=== PATIENT | female | born 1985 | race Two or more races ===

== ENCOUNTER 2016-12-09 09:14 | Emergency (ER) | payer MEDICAID ==
[~2016-12-09] VITALS: Ht 167.6 cm; Wt 72.6 kg
[2016-12-09] MEDS ORDERED: IV NS 0.9% 1,000 ML ONE (09:41)
[2016-12-09] MEDS ORDERED: IV SET PRIMARY 1 EA INFUS.SET MC ONE (09:41)
[2016-12-09] MEDS ORDERED: IV NS 0.9% 1,000 ML BAG IV ONE (10:00)
[2016-12-09 10:06] LABS: CALCIUM, SERUM 8.7 mg/dL (8.5-10.1); CREATININE 0.6 mg/dL (0.6-1.3)
[2016-12-09 10:16] LABS: BASOPHILS % (AUTO) 0.4 % (0.0-2.0); DIFF TOTAL % 100 %; EOSINOPHILS # (AUTO) 0.1 /CMM (0.0-0.7); EOSINOPHILS % (AUTO) 0.8 % (0.0-6.0); HEMATOCRIT 39 % (33-45); HEMOGLOBIN 13.1 g/dL (11.5-14.8); LYMPHOCYTES # (AUTO) 1.5 /CMM (0.8-4.8); LYMPHOCYTES % (AUTO) 16.6 % (20.0-44.0); MEAN CORPUSCULAR HEMOGLOBIN 30 PG (26.0-33.0); MEAN CORPUSCULAR HGB CONC 34 g/dl (31.0-36.0); MEAN CORPUSCULAR VOLUME 88 fL (82-100); MONOCYTES # (AUTO) 0.7 /CMM (0.1-1.30); NEUTROPHILS % (AUTO) 75.2 % (43.0-81.0); PLATELET COUNT (AUTO) 164 /CMM (150-450); RED BLOOD CELL COUNT(AUTO) 4.43 MIL/uL (4.0-5.2); WHITE BLOOD COUNT (AUTO) 9.3 K/uL (4.3-11.0)
[2016-12-09] MEDS ORDERED: CT SWABBABLE VALVE TRANS SET 1 EA INFUS.SET MC ONE (10:40)
[2016-12-09] MEDS ORDERED: IV NS 0.9% 250 ML IV ONE (10:40)
[2016-12-09] MEDS ORDERED: IOHEXOL-300 100 ML VIAL IV ONE (10:41)
[2016-12-09] MEDS ORDERED: IV SET PRIMARY PUMP SET 1 EA INFUS.SET MC ONE (11:56)
[2016-12-09] MEDS ORDERED: VANCOMYCIN 1 GM in IV D5W 250 ML IV ONE (12:00)
[2016-12-09] MEDS: CLINDAMYCIN 600 MG in IV D5W 100 ML IV ONE ×2 (12:16→12:41)
[2016-12-09] MEDS ORDERED: CLINDAMYCIN 600 MG in IV D5W 50 ML IV ONE (12:30)
[2016-12-09 13:59] VITALS: BP 120/81
== END 2016-12-09 13:59 | disposition home or self-care (01) ==
LOC: ER 09:19
DX: B99.8 Other infectious disease (principal)
CPT/HCPCS: 36415; 70491-TC; 80048-TC; 84703-TC; 85025-TC; A4606; A6402; A6403; J3370; J3490; J7030; J7050; J7060; Q9967; Z7610

== ENCOUNTER 2016-12-19 09:06 | Emergency (ER) | payer MEDICAID ==
[~2016-12-19] VITALS: Ht 152.4 cm; Wt 71.7 kg
[2016-12-19 09:06] VITALS: BP 104/71
== END 2016-12-19 09:37 | disposition home or self-care (01) ==
LOC: ER 09:08
DX: R22.1 Localized swelling, mass and lump, neck (principal); L23.9 Allergic contact dermatitis, unspecified cause
CPT/HCPCS: 99283; A4606; Z7610

== ENCOUNTER 2018-03-08 11:46 | Emergency (ER) | payer MEDICAID, OTHER ==
[~2018-03-08] VITALS: Ht 165.1 cm; Wt 72.1 kg
[2018-03-08 11:52] VITALS: BP 125/76
== END 2018-03-08 13:48 | disposition home or self-care (01) ==
LOC: ER 11:50
DX: M25.552 Pain in left hip (principal); M79.652 Pain in left thigh; M79.662 Pain in left lower leg
CPT/HCPCS: 73503; 84703; 99285; A4606; Z7610; 73502